=== PATIENT | female | born 1970 | race Native Hawaiian/Other Pacific Islander ===

== ENCOUNTER 2017-02-06 09:07 | Emergency (ER) | payer SELFPAY ==
[2017-02-06 09:16] VITALS: RESP 16
[2017-02-06 10:04] LABS: URINE BILIRUBIN NEGATIVE (NEGATIVE); URINE COLOR Yellow (YELLOW); URINE GLUCOSE (UA) NORMAL (Normal); URINE KETONE NEGATIVE (NEGATIVE); URINE LEUKOCYTE ESTERASE TRACE Leu/uL (Negative); URINE PROTEIN NEGATIVE (NEGATIVE); URINE UROBILINOGEN NORMAL mg/dL (0.2-1.0); WBC URINE 2 /hpf (0-5)
[2017-02-06 10:16] LABS: RBC URINE 12 /hpf (0-3); URINE BLOOD 2+ (NEGATIVE)
--- NOTE | 2017-02-06 10:42 | C.PDOC ---
History Of Present Illness 46 yo female come in for evaluation of vaginal discomfort, itchiness associated with scant yellow discharges, (+) strong odor gradually developed for past few weeks. Otherwise, pt denies fever, chills, sore throat, abd. pain, N/V/D, back pain, UTI sx, Denies previous hx of STD. Ambulate to ED for evaluation, not in any apparent distress. Pt admits, started menstrual period today. Time Seen by Provider: 02/06/17 09:18 Chief Complaint (Nursing): Female Genitourinary History Per: Patient Onset/Duration Of Symptoms: Gradual Past Medical History Reviewed: Historical Data, Nursing Documentation, Vital Signs Vital Signs: Last Vital Signs Temp 98.0 F 02/06/17 09:11 Pulse 90 02/06/17 09:11 Resp 16 02/06/17 09:11 BP 144/98 H 02/06/17 09:11 Pulse Ox 98 02/06/17 10:42 - Medical History PMH: No Chronic Diseases, Depression Surgical History: No Surg Hx Family History: States: No Known Family Hx - Social History Hx Alcohol Use: No Hx Substance Use: No Review Of Systems Except As Marked, All Systems Reviewed And Found Negative. Constitutional: Negative for: Fever, Chills ENT: Negative for: Throat Pain Cardiovascular: Negative for: Chest Pain Respiratory: Negative for: Cough, Shortness of Breath, Wheezing Gastrointestinal: Negative for: Nausea, Vomiting Genitourinary: Positive for: Vaginal Discharge. Negative for: Dysuria, Frequency, Incontinence Musculoskeletal: Negative for: Neck Pain, Back Pain Skin: Negative for: Rash Neurological: Negative for: Headache, Dizziness Physical Exam - Physical Exam Appears: Well, Non-toxic, No Acute Distress Skin: Normal Color, Warm, Dry, No Rash Head: Normacephalic Eye(s): bilateral: PERRL Nose: No Flaring, No Discharge Oral Mucosa: Moist, No Drooling Throat: No Erythema, No Drooling Neck: Supple Cardiovascular: Rhythm Regular Respiratory: No Decreased Breath Sounds, No Accessory Muscle Use, No Stridor, No Wheezing Gastrointestinal/Abdominal: Soft, No Tenderness, No Distention, No Guarding Back: No CVA Tenderness Pelvic: Vaginal Bleeding (scant), No Vaginal Discharge Extremity: No Pedal Edema Neurological/Psych: Oriented x3, Normal Speech ED Course And Treatment O2 Sat by Pulse Oximetry: 98 Pulse Ox Interpretation: Normal Progress Note: On re-evaluation, pt is afebrile, hemodynamicaly stable. NOn- toxic. Tolerate Po well in ED. ENT: no acute findings. neck: SUpple. ABd: benign. Back: (-) CVA tenderness. UA results review and no acute abnoramlities noted, pt currently has menstrual period. Pt has clinical findings c/w vaginitis. Pt advised. re.f to F/u with [facility] [facility] in 2-3 days for re- eavl. return to ED if any worsening or new changes. Disposition Counseled Patient/Family Regarding: Studies Performed, Diagnosis, Need For Followup, Rx Given - Disposition [facility]errals: [facility]] [facility] [Outside] Disposition Time: 10:42 Condition: STABLE Additional Instructions: take medication as prescribed Vaginal suppositories started after menstrual period finish Follow up with [facility] In 2-3 days for re-evaluation. Return to ED if any worsening or new changes. Prescriptions: Fluconazole [Diflucan] 200 mg PO DAILY #2 tab Metronidazole [Flagyl] 500 mg PO BID #14 tablet metroNIDAZOLE 0.75% [Metrogel Cream] 1 applic VAG HS #1 tube Instructions: Vaginitis (ED) Forms: [employer] ([place]) - Clinical Impression Clinical Impression: Vaginitis
[2017-02-06 11:12] VITALS: BP 136/88; PULSE 84; TEMP 98.2; O2SAT 99
== END 2017-02-06 11:18 | disposition home or self-care (01) ==
LOC: C.ER 09:07
DX: N76.0 Acute vaginitis (principal)